=== PATIENT | male | born 1980 | race African-American/Black ===

== ENCOUNTER 2019-09-03 09:15 | Emergency (ER) | payer SELFPAY ==
[~2019-09-03] VITALS: Ht 195.6 cm; Wt 150.0 kg
--- NOTE | 2019-09-03 09:44 | PHYS DOC ---
Past Medical History Past Medical History: Asthma Past Surgical History: Other Additional Past Surgical Histo: HEMORRHOID,HAND Smoking Status: Current Every Day Smoker Alcohol Use: Occasionally General Adult EDM: Chief Complaint: HYPERTENSION HPI: HPI: Patient is a 39 year old smoker male with history of asthma who presents with complaint of chest tightness and high blood pressure. Patient states he had a normal bowel movement around 0840 today and felt chest tightness in the substernal and bilateral chest associated with dizziness without radiation of pain, shortness of breath, palpitation, nausea, focal neuro deficit, cough and congestion, fever and chills. Patient states the pain lasts a few seconds and his checked his blood pressure that was elevated without having history of high blood pressure. Patient admitted to use cocaine and marijuana for the last few days with the last use was last night. Review of Systems: Review of Systems: Constitutional: Denies fever or chills. [] Eyes: Denies change in visual acuity. [] HENT: Denies nasal congestion or sore throat. [] Respiratory: Denies cough or shortness of breath. [] Cardiovascular: Reports chest pain, denies edema GI: Denies abdominal pain, nausea, vomiting, bloody stools or diarrhea. [] : Denies dysuria. [] Musculoskeletal: Denies back pain or joint pain. [] Integument: Denies rash. [] Neurologic: Denies headache, focal weakness or sensory changes. [] Endocrine: Denies polyuria or polydipsia. [] Lymphatic: Denies swollen glands. [] Psychiatric: Denies depression or anxiety. [] Heart Score: HEART Score for Chest Pain: HEART Score for Chest Pain Response (Comments) Value History Slighlty/Non-Suspicious 0 ECG Nonspecific Repolarizatio 1 Age < 45 0 Risk Factors 1 or 2 Risk Factors 1 Troponin < Normal Limit 0 Total 2 Risk Factors: Risk Factors: DM, Current or recent (<one month) smoker, HTN, HLP, family history of CAD, obesity. Risk Scores: Score 0 - 3: 2.5% MACE over next 6 weeks - Discharge Home Score 4 - 6: 20.3% MACE over next 6 weeks - Admit for Clinical Observation Score 7 - 10: 72.7% MACE over next 6 weeks - Early Invasive Strategies Allergies: Allergies: Allergies Coded Allergies Type Severity Reaction Last Updated Verified No Known Drug Allergies 09/03/19 No Physical Exam: PE: Constitutional: Well developed, well nourished, mild distress, non-toxic appearance, obese. [] HENT: Normocephalic, atraumatic. Eyes: PERRLA, EOMI, conjunctiva normal, no discharge. [] Neck: Normal range of motion, no tenderness, supple, no stridor. [] Cardiovascular: Tachycardia, no murmur [] Lungs & Thorax: Bilateral breath sounds clear to auscultation [] Abdomen: Bowel sounds normal, soft, no tenderness, no masses, no pulsatile masses. [] Skin: Warm, dry, no erythema, no rash. [] Back: No tenderness, no CVA tenderness. [] Extremities: No tenderness, no cyanosis, no clubbing, ROM intact, no edema. [] Neurologic: Alert and oriented X 3, no focal deficits noted. [] Psychologic: Affect normal, judgement normal, mood normal. [] Current Patient Data: Vital Signs: Vital Signs Date Time Temp Pulse Resp B/P (MAP) Pulse Ox O2 Delivery O2 Flow Rate FiO2 09/03/19 09:18 98.1 117 18 193/103 (133) 98 Room Air 98.1 EKG: EKG: EKG interpreted by me. EKG at 0 944 showed sinus tachycardia at rate of 103, left pink axis, normal TX and QT intervals, poor R wave progression anteroseptal leads, no acute ST and T wave elevation. Radiology/Procedures: Radiology/Procedures: [facility] [address] [place] [address] IMAGING REPORT Signed PATIENT: CONTRERAS VAZQUEZ: [id number] : 1980 LOCATION: ER AGE: 39 SEX: M EXAM STATUS: PRE ER ORD. PHYSICIAN: LEROY LANE MD REASON: Chest pain PROCEDURE: PORTABLE CHEST 1V PORTABLE CHEST 1V INDICATION: Chest pain. COMPARISON STUDY: None. FINDINGS: Lungs: Normal lung volume. No pulmonary mass or consolidation. The tracheobronchial tree and hilar structures are normal. Pleura: No pleural effusion or pneumothorax. Heart and Mediastinum: The cardiomediastinal silhouette is normal. The great vessels of the thorax are normal. Bones and Soft Tissues: The bones and soft tissues are within normal limits. IMPRESSION: No acute cardiopulmonary process. Electronically signed by: Esperanza Fu MD (09/03/2019 9:55 AM) [id number] DICTATED and SIGNED BY: ESPERANZA FU MD DATE: 09/03/19 0955 Course & Med Decision Making: Course & Med Decision Making Pertinent Labs and Imaging studies reviewed. (See chart for details) Evaluation of patient in ER showed 39-year-old male patient with heart score of 2 and complaining of chest pain and dizziness today after using cocaine and marijuana last night. Patient had tachycardia and elevation of blood pressure at 193/114 without history of hypertension. Blood pressure gradually decreased to 130s over 80s and heart rate decreased to 80s. Patient had hemoglobin of 10.8 without history of anemia. Patient had blood sugar of 198 without history of diabetes mellitus. Patient was advised to quit smoking cigarettes and using cocaine and marijuana and record his blood pressure and follow-up with the primary care physician regarding evaluation for high blood pressure, anemia and elevation of blood pressure. Patient did not have chest pain at time of discharge. I've spoken with the patient and/or caregivers. I've explained the patient's condition, diagnosis and treatment plan based on information available to me at this time. I've answered the patient's and/or caregivers questions and addressed any concerns. The patient and/or caregivers have a good understanding the patient's diagnosis, condition and treatment plan as can be expected at this point. Vital signs have been stabilized. The patient's condition is stable for discharge from the emergency department. The patient will pursue further outpatient evaluation with her primary care provider or other designated consulting physician as outlined in the discharge instructions. Patient and/or caregivers are agreeable to this plan of care and follow-up instructions have been explained in detail. The patient and/or caregivers have received these instructions in written format and expressed understanding of these discharge instructions. The patient and her caregivers are aware that if any significant change in condition or worsening of symptoms should prompt him to immediately return to this of the closest emergency department. If an emergent department is not readily available I would encourage him to call 911. Kimberly Disclaimer: Kimberly Disclaimer: This electronic medical record was generated, in whole or in part, using a voice recognition dictation system. Departure Departure Impression: Primary Impression: Cocaine adverse reaction Qualified Codes: T40.5X5A - Adverse effect of cocaine, initial encounter Additional Impressions: Chest pain Qualified Codes: R07.9 - Chest pain, unspecified Elevated blood pressure reading without diagnosis of hypertension Substance abuse Anemia Qualified Codes: D64.9 - Anemia, unspecified Tobacco abuse Tobacco abuse counseling Hyperglycemia Disposition: HOME, SELF-CARE (At 1107) Condition: IMPROVED Patient Instructions: Anemia, FAQs, Chest Pain (Nonspecific), Cocaine Abuse- Brief, Form - Blood Pressure Record Sheet, How to Take Your Blood Pressure, [id number], Hyperglycemia, Managing Your High Blood Pressure, Smoking Cessation, Tips For Success Additional Instructions: Stop smoking cigarettes and using drugs Follow-up with your primary care physician in 3-5 days for evaluation of low blood or anemia and elevation of blood sugar and blood pressure Return to ER if not getting better Thank you for visiting [facility]. We appreciate you trusting us with your care. If any additional problems come up don't hesitate to return to visit us. Please follow up with your primary care provider so they can plan additional care if needed and know about the problem that you had. If symptoms worsen come back to the Emergency Department. Any concerning symptoms that start such as chest pain, shortness of air, weakness or numbness on one side of the body, running high fevers or any other concerning symptoms return to the ER. LEROY LANE MD Sep 03, 2019 09:44
[2019-09-03] MEDS ORDERED: ASPIRIN CHEWABLE 81 MG TABLET. PO ONE (09:45)
[2019-09-03] MEDS ORDERED: NITROGLYCERIN SUBLINGUAL 0.4 MG BOTTLE OF 25. SL PRN (09:45)
--- NOTE | 2019-09-03 09:58 | RAD ---
PORTABLE CHEST 1V INDICATION: Chest pain. COMPARISON STUDY: None. FINDINGS: Lungs: Normal lung volume. No pulmonary mass or consolidation. The tracheobronchial tree and hilar structures are normal. Pleura: No pleural effusion or pneumothorax. Heart and Mediastinum: The cardiomediastinal silhouette is normal. The great vessels of the thorax are normal. Bones and Soft Tissues: The bones and soft tissues are within normal limits. IMPRESSION: No acute cardiopulmonary process. Electronically signed by: Lane Fu MD (09/03/2019 9:55 AM) [id number]
[2019-09-03 10:10] LABS: BASO # 0.1 x10^3/uL (0.0-0.2); BASO % 1 % (0-3); EOS # 0.2 x10^3/uL (0.0-0.7); EOS % 2 % (0-3); HEMATOCRIT 33.5 % (39.0-53.0); HEMOGLOBIN 10.8 g/dL (13.0-17.5); LYMPH # 1.1 x10^3/uL (1.0-4.8); LYMPH % 13 % (24-48); MEAN CORPUSCULAR HEMOGLOBIN 26 pg (25-35); MEAN CORPUSCULAR HGB CONC 32 g/dL (31-37); MEAN CORPUSCULAR VOLUME 81 fL (79-100); MONO # 0.5 x10^3/uL (0.0-1.1); MONO % 6 % (0-9); NEUT # 6.6 x10^3/uL (1.8-7.7); NEUT % 78 % (31-73); PLATELET COUNT 299 x10^3/uL (140-400); RED BLOOD COUNT 4.13 x10^6/uL (4.30-5.70); RED CELL DISTRIBUTION WIDTH 13.8 % (11.5-14.5); WHITE BLOOD COUNT 8.5 x10^3/uL (4.0-11.0)
[2019-09-03 10:20] LABS: CALCIUM 8.4 mg/dL (8.5-10.1); CREATININE 1.2 mg/dL (0.7-1.3); POTASSIUM 3.6 mmol/L (3.5-5.1)
[2019-09-03 10:27] LABS: ALBUMIN 3.5 g/dL (3.4-5.0); ALBUMIN/GLOBULIN RATIO 1.1 (1.0-1.7); MAGNESIUM 1.8 mg/dL (1.8-2.4); TOTAL BILIRUBIN 0.3 mg/dL (0.2-1.0); TOTAL PROTEIN 6.8 g/dL (6.4-8.2)
[2019-09-03 10:42] LABS: BARBITURATES NEG (NEG); BENZODIAZEPINES NEG (NEG); CANNABINOIDS POS (NEG); COCAINE POS (NEG); METHADONE NEG (NEG); OPIATES NEG (NEG); PHENCYCLIDINE NEG (NEG)
[2019-09-03 10:47] LABS: AMPHETAMINE/METHAMPHETAMINE NEG (NEG)
[2019-09-03 11:13] VITALS: BP 124/55
--- NOTE | 2019-09-03 20:48 | EKG ---
[facility] [address] [place] [address] Test Date: 2019-09-03 Test Time: 09:44:48 Pat Name: JOEL VAZQUEZ Department: Room: Gender: M Operations Assistant: : 1980 Requested By: LEROY LANE Order Number: [id number] Reading MD: Chris Gallegos MD Measurements Intervals [place] Rate: 103 P: 54 AK: 140 QRS: -14 QRSD: 106 T: 20 QT: 342 QTc: 450 Interpretive Statements SINUS TACHYCARDIA Electronically Signed On 09-05-2019 9:42:37 CDT by Chris Gallegos MD
== END 2019-09-03 11:14 | disposition home or self-care (01) ==
LOC: ER 09:15
DX: I10 Essential (primary) hypertension (principal); R07.2 Precordial pain; T40.5X5A Adverse effect of cocaine, initial encounter; J45.909 Unspecified asthma, uncomplicated; D64.9 Anemia, unspecified; F17.200 Nicotine dependence, unspecified, uncomplicated; F19.10 Other psychoactive substance abuse, uncomplicated; R73.9 Hyperglycemia, unspecified; Z71.6 Tobacco abuse counseling; Z98.890 Other specified postprocedural states; Y92.89 Other specified places as the place of occurrence of the external cause
CPT/HCPCS: 36415; 71045; 80053; 80307; 82550; 83690; 83735; 83880; 84484; 85025; 85379; 93005; 99285